=== PATIENT | female | born 1970 | race Caucasian/White ===

== ENCOUNTER 2017-01-14 21:12 | Emergency (ER) | payer OTHER ==
[~2017-01-14 21:12] MED LIST: ALD25 PO; COL100 PO; ELA25 PO; FER300 PO; K10 PO; KLOR-CON M1010 MEQ PO; MAGNESIUM; MAGNESIUM OXID400 MG PO; METP PO; MOT800 PO; MOTRIN800 MG PO; OMEPRAZOLE DR20 M1 PO; POTASSIUM20 MEQ; ULT50 PO; VITAMIN C500 M2 PO; ZOFRAN4 M1 PO; ZOFRAN4 M2 PO
[2017-01-14 23:50] LABS: BASOPHIL % 0.5 % (0-2); PLATELET COUNT 296 x10^3mcL (130-400)
[2017-01-14 23:52] LABS: RED CELL DISTRIBUTION WIDTH 14.9 % (11.5-14.5)
[2017-01-15 00:08] LABS: ALBUMIN 4.1 g/dL (3.4-5.0); ALKALINE PHOSPHATASE 111 U/L (46-116); ALT/SGPT 37 U/L (14-59); AST/SGOT 29 U/L (15-37); BILIRUBIN TOTAL 0.36 mg/dL (0.20-1.00); CALCIUM 9.3 mg/dL (8.5-10.1); CARBON DIOXIDE 35.5 mmol/L (21-32); CHLORIDE SERUM 100 mmol/L (98-107); CREATININE SERUM 0.8 mg/dL (0.6-1.0); GFR1 > 60 mL/min; GLUCOSE SERUM 104 mg/dL (74-106); LIPASE 171 IU/L (73-393); SODIUM SERUM 140 mmol/L (136-145)
[2017-01-15 00:10] LABS: AMYLASE 142 U/L (25-115); TOTAL PROTEIN, SERUM 8.5 g/dL (6.4-8.2)
[2017-01-15 00:12] LABS: POTASSIUM SERUM 2.8 mmol/L (3.5-5.1)
[2017-01-15 04:27] VITALS: BP 107/76
== END 2017-01-15 04:27 | disposition home or self-care (01) ==
LOC: ED 21:12
PROVIDERS: Emergency Medicine
DX: E87.6 Hypokalemia (principal); Z88.5 Allergy status to narcotic agent; Z88.1 Allergy status to other antibiotic agents
CPT/HCPCS: J1885; J2405; J2550; J3010; J3480; J7030

== ENCOUNTER 2017-01-20 20:01 | Emergency (ER) | payer OTHER ==
[2017-01-20 22:20] LABS: BASOPHIL % 0.4 % (0-2); PLATELET COUNT 262 x10^3mcL (130-400)
[2017-01-20 22:33] LABS: CALCIUM 9.4 mg/dL (8.5-10.1); CARBON DIOXIDE 34.3 mmol/L (21-32); CHLORIDE SERUM 100 mmol/L (98-107); CREATININE SERUM 0.9 mg/dL (0.6-1.0); GFR1 > 60 mL/min; GLUCOSE SERUM 105 mg/dL (74-106); POTASSIUM SERUM 3.2 mmol/L (3.5-5.1); SODIUM SERUM 141 mmol/L (136-145)
[2017-01-20 22:37] LABS: ALKALINE PHOSPHATASE 104 U/L (46-116); ALT/SGPT 36 U/L (14-59); AST/SGOT 30 U/L (15-37); BILIRUBIN TOTAL 0.4 mg/dL (0.20-1.00); LIPASE 113 IU/L (73-393); MAGNESIUM 1.9 mg/dL (1.8-2.4); TOTAL PROTEIN, SERUM 7.9 g/dL (6.4-8.2)
[2017-01-21 01:39] VITALS: BP 102/70
== END 2017-01-21 01:39 | disposition home or self-care (01) ==
LOC: ED 20:01
PROVIDERS: Emergency Medicine
DX: R11.2 Nausea with vomiting, unspecified (principal); R19.7 Diarrhea, unspecified; R10.9 Unspecified abdominal pain; E87.6 Hypokalemia; Z90.49 Acquired absence of other specified parts of digestive tract; Z88.1 Allergy status to other antibiotic agents; Z88.5 Allergy status to narcotic agent; Z88.8 Allergy status to other drugs, medicaments and biological substances
CPT/HCPCS: C9113; J1200; J2405; J7030

== ENCOUNTER 2017-04-29 06:55 | Emergency (ER) | payer OTHER ==
[2017-04-29 08:00] LABS: CALCIUM 9.2 mg/dL (8.5-10.1); CARBON DIOXIDE 25.7 mmol/L (21-32); CHLORIDE SERUM 107 mmol/L (98-107); CREATININE SERUM 0.8 mg/dL (0.6-1.0); GFR1 > 60 mL/min; GLUCOSE SERUM 98 mg/dL (74-106); POTASSIUM SERUM 3.3 mmol/L (3.5-5.1); SODIUM SERUM 144 mmol/L (136-145)
[2017-04-29 08:37] VITALS: BP 132/77
== END 2017-04-29 09:13 | disposition home or self-care (01) ==
LOC: ED 06:55
PROVIDERS: Emergency Medicine
DX: R07.89 Other chest pain (principal); T63.441A Toxic effect of venom of bees, accidental (unintentional), initial encounter; L53.0 Toxic erythema; Y92.89 Other specified places as the place of occurrence of the external cause; Z88.5 Allergy status to narcotic agent; Z88.1 Allergy status to other antibiotic agents; Z88.8 Allergy status to other drugs, medicaments and biological substances
CPT/HCPCS: J1200; J2930

== ENCOUNTER 2017-10-01 16:43 | Inpatient (IN) | payer OTHER ==
[~2017-10-01] VITALS: Ht 160 cm; Wt 65.8 kg
[2017-10-01 18:39] LABS: BASOPHIL % 0.6 % (0-2); PLATELET COUNT 258 x10^3mcL (130-400); RED CELL DISTRIBUTION WIDTH 12.7 % (11.5-14.5)
[2017-10-01 18:52] LABS: CALCIUM 9.5 mg/dL (8.5-10.1); CARBON DIOXIDE 25.2 mmol/L (21-32); CHLORIDE SERUM 104 mmol/L (98-107); CREATININE SERUM 0.7 mg/dL (0.6-1.0); GFR1 > 60 mL/min; GLUCOSE SERUM 92 mg/dL (74-106); POTASSIUM SERUM 3.4 mmol/L (3.5-5.1); SODIUM SERUM 138 mmol/L (136-145)
[2017-10-01 19:01] LABS: FREE T4 0.89 ng/dL (0.76-1.46); FREE THYROXINE INDEX 2.8 ug/dL (1.4-4.5); T4(THYROXINE) 8.1 ug/dL (4.7-13.3)
[2017-10-01 19:04] LABS: microscopic required? YES; urine erythrocyte TRACE (NEGATIVE)
[2017-10-01 19:06] LABS: ALBUMIN 4.1 g/dL (3.4-5.0); ALKALINE PHOSPHATASE 102 U/L (46-116); ALT/SGPT 42 U/L (14-59); AST/SGOT 26 U/L (15-37); BILIRUBIN TOTAL 0.4 mg/dL (0.20-1.00); LIPASE 119 IU/L (73-393)
[2017-10-01 19:07] LABS: TOTAL PROTEIN, SERUM 8.4 g/dL (6.4-8.2)
[2017-10-01 19:09] LABS: T3 TOTAL 1.15 ng/mL
[2017-10-01 19:21] LABS: CK-MB 0.5 ng/mL (0-3.6)
[2017-10-01 19:34] LABS: ERYTHROCYTE SED RATE 9 mm/hr (0-20)
[2017-10-01 19:47] LABS: C REACTIVE PROTEIN < 0.2 mg/dL (<=0.9)
[2017-10-01 21:50] VITALS: BP 152/102
[2017-10-01 22:08] LABS: PHOSPHOROUS 2.8 mg/dL (2.5-4.9)
[2017-10-01 22:16] LABS: CHOLESTEROL/HDL RATIO 2.3
[2017-10-02 06:00] VITALS: BP 100/56
[2017-10-02 06:48] LABS: BASOPHIL % 0.6 % (0-2); PLATELET COUNT 216 x10^3mcL (130-400); RED CELL DISTRIBUTION WIDTH 13.1 % (11.5-14.5)
[2017-10-02 06:53] LABS: CALCIUM 8.1 mg/dL (8.5-10.1); CARBON DIOXIDE 24.1 mmol/L (21-32); CHLORIDE SERUM 110 mmol/L (98-107); CREATININE SERUM 0.6 mg/dL (0.6-1.0); GFR1 > 60 mL/min; GLUCOSE SERUM 94 mg/dL (74-106); MAGNESIUM 1.7 mg/dL (1.8-2.4); PHOSPHOROUS 3.2 mg/dL (2.5-4.9); SODIUM SERUM 141 mmol/L (136-145)
[2017-10-02 10:20] VITALS: BP 115/70
[2017-10-02 13:30] VITALS: BP 111/76
[2017-10-02 18:16] VITALS: BP 107/69
[2017-10-02 22:21] VITALS: BP 114/80
[2017-10-03 05:39] VITALS: BP 102/60
[2017-10-03] MEDS ORDERED: TYL325 PO (07:33)
[2017-10-03 08:15] VITALS: BP 120/79
[2017-10-03 09:36] LABS: CALCIUM 8.8 mg/dL (8.5-10.1); CARBON DIOXIDE 27.8 mmol/L (21-32); CHLORIDE SERUM 108 mmol/L (98-107); CREATININE SERUM 0.7 mg/dL (0.6-1.0); GFR1 > 60 mL/min; GLUCOSE SERUM 85 mg/dL (74-106); POTASSIUM SERUM 3.7 mmol/L (3.5-5.1); SODIUM SERUM 142 mmol/L (136-145)
[2017-10-03 12:05] VITALS: BP 123/73
[2017-10-03 12:51] VITALS: BP 120/79
[2017-10-03] MEDS ORDERED: ELA25 PO (14:51)
== END 2017-10-03 14:46 | disposition home or self-care (01) | DRG 241 ==
LOC: ED 16:43 → DU 20:54
PROVIDERS: Internal Medicine Gastroenterology; Specialist; ADMIT Family Medicine
PROC: 0DB78ZX Excision of Stomach, Pylorus, Via Natural or Artificial Opening Endoscopic, Diagnostic (ICD-10-PCS; principal; 2017-10-02 11:30)
DX: K29.70 Gastritis, unspecified, without bleeding (principal); N17.0 Acute kidney failure with tubular necrosis; R31.9 Hematuria, unspecified; Z87.891 Personal history of nicotine dependence; E87.6 Hypokalemia; Z88.5 Allergy status to narcotic agent; Z88.6 Allergy status to analgesic agent; Z90.49 Acquired absence of other specified parts of digestive tract; Z82.49 Family history of ischemic heart disease and other diseases of the circulatory system
CPT/HCPCS: 36600; 43235; 83880; 84439; 87046; 87046-59; J1170; J1200; J1610; J2250; J2310; J2405; J2550; J3010; J3480; J3490; J7030; Q0092; Q0162

== ENCOUNTER 2017-10-29 09:52 | Emergency (ER) | payer OTHER ==
[~2017-10-29] VITALS: Ht 160 cm; Wt 61.7 kg
[~2017-10-29 09:52] MED LIST changes: +TYL325 PO
[2017-10-29 10:17] VITALS: Ht 160 cm; Wt 61.7 kg
[2017-10-29 15:27] VITALS: BP 125/79
== END 2017-10-29 15:27 | disposition home or self-care (01) ==
LOC: ED 09:52
DX: L50.9 Urticaria, unspecified (principal); Z88.5 Allergy status to narcotic agent; Z88.8 Allergy status to other drugs, medicaments and biological substances; Z88.1 Allergy status to other antibiotic agents
CPT/HCPCS: J1200

== ENCOUNTER 2017-11-19 10:40 | Emergency (ER) | payer OTHER ==
[~2017-11-19] VITALS: Ht 160 cm; Wt 61.7 kg
[2017-11-19 10:54] VITALS: Ht 160 cm; Wt 61.7 kg
[2017-11-19 11:31] LABS: CALCIUM 9.3 mg/dL (8.5-10.1); CARBON DIOXIDE 30.5 mmol/L (21-32); CHLORIDE SERUM 103 mmol/L (98-107); CREATININE SERUM 0.9 mg/dL (0.6-1.0); GFR1 > 60 mL/min; GLUCOSE SERUM 99 mg/dL (74-106); POTASSIUM SERUM 3.5 mmol/L (3.5-5.1); SODIUM SERUM 142 mmol/L (136-145)
[2017-11-19 11:37] LABS: ALBUMIN 4.4 g/dL (3.4-5.0); ALKALINE PHOSPHATASE 111 U/L (46-116); ALT/SGPT 47 U/L (14-59); AST/SGOT 31 U/L (15-37); BILIRUBIN TOTAL 0.5 mg/dL (0.20-1.00); LIPASE 139 IU/L (73-393)
[2017-11-19 11:39] LABS: TOTAL PROTEIN, SERUM 8.9 g/dL (6.4-8.2)
[2017-11-19 11:56] LABS: BASOPHIL % 0.8 % (0-2); PLATELET COUNT 267 x10^3mcL (130-400); RED CELL DISTRIBUTION WIDTH 12.9 % (11.5-14.5)
[2017-11-19 12:19] VITALS: BP 125/88
== END 2017-11-19 12:19 | disposition home or self-care (01) ==
LOC: ED 10:40
PROVIDERS: Emergency Medicine
DX: N39.0 Urinary tract infection, site not specified (principal); G83.9 Paralytic syndrome, unspecified; Z90.49 Acquired absence of other specified parts of digestive tract; Z88.5 Allergy status to narcotic agent; Z88.1 Allergy status to other antibiotic agents; Z88.8 Allergy status to other drugs, medicaments and biological substances; Z87.19 Personal history of other diseases of the digestive system; Z87.442 Personal history of urinary calculi
CPT/HCPCS: 36415; J1885; Q0162

== ENCOUNTER 2017-12-11 08:49 | Emergency (ER) | payer OTHER ==
[~2017-12-11] VITALS: Ht 160 cm; Wt 59.9 kg
[2017-12-11 09:35] LABS: BASOPHIL % 0.2 % (0-2); PLATELET COUNT 194 x10^3mcL (130-400); RED CELL DISTRIBUTION WIDTH 12.8 % (11.5-14.5)
[2017-12-11 09:46] LABS: CALCIUM 8.8 mg/dL (8.5-10.1); CARBON DIOXIDE 24.5 mmol/L (21-32); CHLORIDE SERUM 100 mmol/L (98-107); CREATININE SERUM 0.9 mg/dL (0.6-1.0); GFR1 > 60 mL/min; GLUCOSE SERUM 104 mg/dL (74-106); SODIUM SERUM 139 mmol/L (136-145)
[2017-12-11 09:50] LABS: ALBUMIN 3.8 g/dL (3.4-5.0); ALKALINE PHOSPHATASE 97 U/L (46-116); ALT/SGPT 73 U/L (14-59); AMYLASE 81 U/L (25-115); AST/SGOT 51 U/L (15-37); BILIRUBIN TOTAL 0.4 mg/dL (0.20-1.00); LIPASE 141 IU/L (73-393); TOTAL PROTEIN, SERUM 8.3 g/dL (6.4-8.2)
[2017-12-11 13:04] VITALS: BP 102/72
== END 2017-12-11 13:04 | disposition home or self-care (01) ==
LOC: ED 08:49
DX: J11.1 Influenza due to unidentified influenza virus with other respiratory manifestations (principal)
CPT/HCPCS: 83880; 87804; J1170; J1885; J2405; J7030

== ENCOUNTER 2017-12-20 08:45 | Emergency (ER) | payer OTHER ==
[~2017-12-20] VITALS: Ht 160 cm; Wt 58.5 kg
[2017-12-20 08:57] VITALS: Ht 160 cm; Wt 58.5 kg
[2017-12-20 10:18] LABS: BASOPHIL % 0.3 % (0-2); PLATELET COUNT 275 x10^3mcL (130-400); RED CELL DISTRIBUTION WIDTH 12.3 % (11.5-14.5)
[2017-12-20 10:23] LABS: CALCIUM 9.8 mg/dL (8.5-10.1); CARBON DIOXIDE 30.2 mmol/L (21-32); CHLORIDE SERUM 99 mmol/L (98-107); CREATININE SERUM 0.8 mg/dL (0.6-1.0); GFR1 > 60 mL/min; GLUCOSE SERUM 103 mg/dL (74-106); POTASSIUM SERUM 3.5 mmol/L (3.5-5.1); SODIUM SERUM 141 mmol/L (136-145)
[2017-12-20 10:27] LABS: ALBUMIN 4.3 g/dL (3.4-5.0); ALKALINE PHOSPHATASE 112 U/L (46-116); ALT/SGPT 460 U/L (14-59); AST/SGOT 141 U/L (15-37); BILIRUBIN TOTAL 0.67 mg/dL (0.20-1.00); LIPASE 157 IU/L (73-393)
[2017-12-20 10:28] LABS: TOTAL PROTEIN, SERUM 8.7 g/dL (6.4-8.2)
[2017-12-20 11:55] VITALS: BP 116/76
== END 2017-12-20 12:30 | disposition home or self-care (01) ==
LOC: ED 08:45
PROVIDERS: Emergency Medicine
DX: G89.29 Other chronic pain (principal); E86.0 Dehydration; Z90.49 Acquired absence of other specified parts of digestive tract; Z88.1 Allergy status to other antibiotic agents; Z88.5 Allergy status to narcotic agent; Z88.8 Allergy status to other drugs, medicaments and biological substances
CPT/HCPCS: J1885; J2405; J2550; J3010; J7030

== ENCOUNTER 2018-07-09 18:53 | Emergency (ER) | payer OTHER ==
[2018-07-09 21:03] LABS: BASOPHIL % 0.9 % (0-2); PLATELET COUNT 228 x10^3mcL (130-400); RED CELL DISTRIBUTION WIDTH 12.8 % (11.5-14.5)
[2018-07-09 21:20] LABS: CALCIUM 9.1 mg/dL (8.5-10.1); CARBON DIOXIDE 35.1 mmol/L (21-32); CHLORIDE SERUM 103 mmol/L (98-107); GFR1 > 60 mL/min; GLUCOSE SERUM 98 mg/dL (74-106); POTASSIUM SERUM 3.5 mmol/L (3.5-5.1); SODIUM SERUM 142 mmol/L (136-145)
[2018-07-09 21:25] LABS: ALBUMIN 3.7 g/dL (3.4-5.0); ALKALINE PHOSPHATASE 109 U/L (46-116); ALT/SGPT 44 U/L (14-59); AST/SGOT 33 U/L (15-37); BILIRUBIN TOTAL 0.3 mg/dL (0.20-1.00); LIPASE 170 IU/L (73-393)
[2018-07-10 01:34] VITALS: BP 121/76
== END 2018-07-10 01:30 | disposition home or self-care (01) ==
LOC: ED 18:53
PROVIDERS: Emergency Medicine
DX: K52.9 Noninfective gastroenteritis and colitis, unspecified (principal); E86.0 Dehydration; Z90.49 Acquired absence of other specified parts of digestive tract; Z87.442 Personal history of urinary calculi; Z90.89 Acquired absence of other organs; Z88.1 Allergy status to other antibiotic agents; Z88.5 Allergy status to narcotic agent
CPT/HCPCS: J1170; J1885; J2405; J7030

== ENCOUNTER 2018-12-05 11:32 | Emergency (ER) | payer OTHER ==
[~2018-12-05] VITALS: Ht 160 cm; Wt 61.2 kg
[2018-12-05 12:10] LABS: BASOPHIL % 0.7 % (0-2); PLATELET COUNT 226 x10^3mcL (130-400); RED CELL DISTRIBUTION WIDTH 13.3 % (11.5-14.5)
[2018-12-05 13:01] LABS: ALBUMIN 3.8 g/dL (3.4-5.0); ALKALINE PHOSPHATASE 122 U/L (46-116); ALT/SGPT 69 U/L (14-59); AST/SGOT 40 U/L (15-37); BILIRUBIN TOTAL 0.44 mg/dL (0.20-1.00); CALCIUM 9.4 mg/dL (8.5-10.1); CARBON DIOXIDE 28.4 mmol/L (21-32); CHLORIDE SERUM 106 mmol/L (98-107); CREATININE SERUM 0.8 mg/dL (0.6-1.0); GFR1 > 60 mL/min; GLUCOSE SERUM 101 mg/dL (74-106); LIPASE 161 IU/L (73-393); POTASSIUM SERUM 3.7 mmol/L (3.5-5.1); SODIUM SERUM 140 mmol/L (136-145); TOTAL PROTEIN, SERUM 8.2 g/dL (6.4-8.2)
[2018-12-05 13:47] VITALS: BP 127/79
== END 2018-12-05 14:31 | disposition home or self-care (01) ==
LOC: ED 11:32
PROVIDERS: Emergency Medicine
DX: K21.9 Gastro-esophageal reflux disease without esophagitis (principal); M54.6 Pain in thoracic spine; Z90.49 Acquired absence of other specified parts of digestive tract; Z90.89 Acquired absence of other organs; Z87.442 Personal history of urinary calculi; Z98.890 Other specified postprocedural states; Z88.1 Allergy status to other antibiotic agents; Z88.6 Allergy status to analgesic agent
CPT/HCPCS: J1885; J2405; J3010; J7030; Q0092

== ENCOUNTER 2019-05-30 00:11 | Emergency (ER) | payer OTHER ==
[~2019-05-30] VITALS: Ht 160 cm; Wt 61.0 kg
[2019-05-30 00:29] VITALS: Ht 160 cm; Wt 61.0 kg
[2019-05-30 03:02] LABS: CALCIUM 9.4 mg/dL (8.5-10.1); CHLORIDE SERUM 105 mmol/L (98-107); CREATININE SERUM 0.8 mg/dL (0.6-1.0); GFR1 > 60 mL/min; GLUCOSE SERUM 96 mg/dL (74-106); POTASSIUM SERUM 3.4 mmol/L (3.5-5.1); SODIUM SERUM 144 mmol/L (136-145)
[2019-05-30 03:07] LABS: ALKALINE PHOSPHATASE 111 U/L (46-116); ALT/SGPT 39 U/L (14-59); AST/SGOT 20 U/L (15-37); BILIRUBIN TOTAL 0.38 mg/dL (0.20-1.00); CHOLESTEROL 185 mg/dL (<200); LIPASE 118 IU/L (73-393); TRIGLYCERIDES 122 mg/dL (<150)
[2019-05-30 03:08] LABS: BASOPHIL % 0.9 % (0-2); CHOLESTEROL/HDL RATIO 2.9; HDL CHOLESTEROL 64 mg/dL (40-60); PLATELET COUNT 253 x10^3mcL (130-400); RED CELL DISTRIBUTION WIDTH 12.9 % (11.5-14.5)
[2019-05-30 03:14] LABS: FREE T4 1.04 ng/dL (0.76-1.46); FREE THYROXINE INDEX 2.7 ug/dL (1.4-4.5)
[2019-05-30 03:21] LABS: T3 TOTAL 1.52 ng/mL
[2019-05-30 04:59] LABS: microscopic required? YES; urine erythrocyte NEGATIVE (NEGATIVE)
[2019-05-30 05:54] VITALS: BP 126/61
== END 2019-05-30 05:54 | disposition home or self-care (01) ==
LOC: ED 00:11
PROVIDERS: Specialist
DX: E87.6 Hypokalemia (principal); R07.89 Other chest pain; M79.10 Myalgia, unspecified site; Z90.49 Acquired absence of other specified parts of digestive tract; Z90.89 Acquired absence of other organs; Z87.442 Personal history of urinary calculi; Z88.1 Allergy status to other antibiotic agents; Z88.5 Allergy status to narcotic agent; Z88.8 Allergy status to other drugs, medicaments and biological substances
CPT/HCPCS: 83880; 84439; J2405; J7030; Q0163

== ENCOUNTER 2020-04-19 10:10 | Emergency (ER) | payer OTHER ==
[~2020-04-19] VITALS: Ht 160 cm; Wt 63.0 kg
[2020-04-19 10:18] VITALS: Ht 160 cm; Wt 63.0 kg
[2020-04-19 11:36] LABS: BASOPHIL % 0.5 % (0-2); PLATELET COUNT 186 x10^3mcL (130-400); RED CELL DISTRIBUTION WIDTH 12.9 % (11.5-14.5)
[2020-04-19 11:46] LABS: CALCIUM 8.4 mg/dL (8.5-10.1); CARBON DIOXIDE 29.2 mmol/L (21-32); CHLORIDE SERUM 106 mmol/L (98-107); CREATININE SERUM 0.7 mg/dL (0.6-1.0); GFR1 > 60 mL/min; GLUCOSE SERUM 94 mg/dL (74-106); POTASSIUM SERUM 3.1 mmol/L (3.5-5.1); SODIUM SERUM 142 mmol/L (136-145)
[2020-04-19 11:51] LABS: ALBUMIN 3.6 g/dL (3.4-5.0); ALKALINE PHOSPHATASE 104 U/L (46-116); ALT/SGPT 63 U/L (14-59); AST/SGOT 32 U/L (15-37); BILIRUBIN TOTAL 0.29 mg/dL (0.20-1.00); TOTAL PROTEIN, SERUM 7.2 g/dL (6.4-8.2)
[2020-04-19 12:12] LABS: FREE T4 0.81 ng/dL (0.76-1.46); T4(THYROXINE) 6.2 ug/dL (4.7-13.3)
[2020-04-19 12:34] LABS: T3 TOTAL 0.89 ng/mL
[2020-04-19 12:35] LABS: microscopic required? YES; urine erythrocyte NEGATIVE (NEGATIVE)
[2020-04-19 16:58] VITALS: BP 115/74
== END 2020-04-19 16:58 | disposition short-term general hospital (02) ==
LOC: ED 10:10
PROVIDERS: Emergency Medicine
DX: G93.6 Cerebral edema (principal); G93.9 Disorder of brain, unspecified; E87.6 Hypokalemia; N39.0 Urinary tract infection, site not specified; Z88.1 Allergy status to other antibiotic agents; Z88.5 Allergy status to narcotic agent; Z88.8 Allergy status to other drugs, medicaments and biological substances; Z90.49 Acquired absence of other specified parts of digestive tract; Z90.89 Acquired absence of other organs; Z87.442 Personal history of urinary calculi
CPT/HCPCS: 84439; J1100; J2270; J2405; J3010; J7030

== ENCOUNTER 2020-04-28 10:42 | Inpatient (IN) | payer OTHER, SELFPAY ==
[~2020-04-28] VITALS: Ht 160 cm; Wt 59.0 kg
--- NOTE | 2020-04-28 11:54 | NUR ---
PT AMBULATED TO ROOM T1 WITH MASK, PT EDUCATED TO REMOVE CLOTHING FOR COOLING MEASURES AND TO PLACE GOWN ON. PT AWAITING MD ESQUIVEL. PRIMARY RN AWARE OF PT. PT EDUCATED TO KEEP BLANKETS OFF DUE TO HAVING 102.8 TEMPERATURE.
[2020-04-28 12:18] VITALS: Ht 160 cm; Wt 59.0 kg
--- NOTE | 2020-04-28 12:27 | NUR ---
49 YEAR OLD FEMALE PRESENTS WITH DRY COUGH, SHORTNESS OF BREATH, CHEST PAIN, BODY ACHES AND LOSS OF TASTE X 1 WEEK. PT REPORTS SHE WAS HOSPITALIZED FOR 4 DAYS FOR A BENIGN BRAIN TUMOR. PT IS AWAKE, ALERT, ANSWERING QUESTIONS APPROPRIATELY. PT APPEARS [id number] WITH INTERMITTENT MOANING. DENIES ANY RECENT SICK CONTACTS
[2020-04-28 12:39] LABS: CALCIUM 8.3 mg/dL (8.5-10.1); CARBON DIOXIDE 26.6 mmol/L (21-32); CHLORIDE SERUM 101 mmol/L (98-107); CREATININE SERUM 0.9 mg/dL (0.6-1.0); GFR1 > 60 mL/min; GLUCOSE SERUM 96 mg/dL (74-106); POTASSIUM SERUM 3.8 mmol/L (3.5-5.1); SODIUM SERUM 138 mmol/L (136-145)
[2020-04-28 12:42] LABS: ALKALINE PHOSPHATASE 110 U/L (46-116); ALT/SGPT 69 U/L (14-59); AST/SGOT 37 U/L (15-37); BILIRUBIN TOTAL 0.44 mg/dL (0.20-1.00); C REACTIVE PROTEIN 5.5 mg/dL (<=0.9); LACTIC DEHYDROGENASE (LDH) 342 U/L (100-190)
[2020-04-28 12:43] LABS: BASOPHIL % 0.2 % (0-2); PLATELET COUNT 166 x10^3mcL (130-400); RED CELL DISTRIBUTION WIDTH 12.8 % (11.5-14.5)
[2020-04-28 12:53] LABS: ALBUMIN 3.1 g/dL (3.4-5.0)
[2020-04-28 14:44] LABS: T3 TOTAL 0.74 ng/mL
[2020-04-28 15:12] LABS: MAGNESIUM 1.9 mg/dL (1.8-2.4); PHOSPHOROUS 2.9 mg/dL (2.5-4.9)
--- NOTE | 2020-04-28 15:13 | NUR ---
PT COMFORTABLY LAYING IN GURNEY. PT IS AWAKE, ALERT, RESP E/U.
--- NOTE | 2020-04-28 15:20 | NUR ---
GAVE REPORT TO JOEL
[2020-04-28 15:21] LABS: CHOLESTEROL/HDL RATIO 2.4
--- NOTE | 2020-04-28 15:32 | NUR ---
RECEIVED PATIENT FROM ED VIA [facility] ACCOMPANIED BY NURSE. PATIENT ABLE TO AMBULATE FROM [facility] TO BED. TOLERATED WELL. PATIENT AAOX4. DENIES DIZZINESS, TOLERABLE HEADACHE 3/10 PAIN. PERRL. NO ACUTE RESP DISTRESS NOTED. REMAINS ON 2L NC WITH O2 SATURATION AT 97%. NO SOB NOTED. DRY COUGHING NOTED. DENIES CHEST PAIN OR PRESSURE. ON TELE #10, NSR. PER PATIENT LAST BM WAS TWO WEEKS AGO. HYPOACTIVE BOWEL SOUNDS NOTED. DENIES DYSURIA. RADIAL AND PEDAL PULSES PRESENT AND PALPABLE. CAP REFILL <3SECS. IV SITE RFA 22G, INTACT AND PATENT. NO ERYTHEMA/SWELLING NOTED. SAFETY PREC IN PLACE. CALL LIGHT WITHIN REACH. WILL CONTINUE TO MONITOR.
[2020-04-28 15:59] LABS: FREE T4 0.8 ng/dL (0.76-1.46); FREE THYROXINE INDEX 1.9 ug/dL (1.4-4.5); T4(THYROXINE) 6.1 ug/dL (4.7-13.3)
--- NOTE | 2020-04-28 16:41 | NUR ---
TERA-TORRES MADE AWARE THAT PATIENT IS ALLERGIC TO ROCEPHIN AND MEDICATION WAS DC'D BY PHARMACY. ATTENDING NURSE JOEL AWARE.
--- NOTE | 2020-04-28 17:45 | NUR ---
PATIENT MADE AWARE OF URINE SAMPLE NEEDED. URINE CUP PROVIDED. ABLE TO GIVE URINE SAMPLE. MRSA SWAB DONE. BOTH SENT TO LAB.
[2020-04-28 18:15] LABS: microscopic required? NO
[2020-04-28 18:29] LABS: urine erythrocyte NEGATIVE (NEGATIVE)
--- NOTE | 2020-04-28 18:30 | NUR ---
COVID SWAB COMPLETED. PATIENT TOLERATED WELL. WILL CONTINUE TO MONITOR.
[2020-04-28 19:17] VITALS: BP 94/61
--- NOTE | 2020-04-28 19:30 | NUR ---
PATIENT STABLE. ALL NEEDS MET. ENDORSED CARE TO CARDIOLOGY MANAGER NURSE.
[2020-04-28 20:35] VITALS: BP 107/64
--- NOTE | 2020-04-28 21:26 | NUR ---
PT MEDICATED W/ TYLENOL 650 MG PO FOR C/O ABDL PAIN 04/29.
--- NOTE | 2020-04-28 21:56 | NUR ---
DULCOLAX SUPPOSITORY ADMINISTERED ORDERED.
--- NOTE | 2020-04-29 03:16 | NUR ---
PT STATED SHE HAD BOWEL MOVEMENTS X3 AFTER DULCOLAX SUPP WAS GIVEN.
--- NOTE | 2020-04-29 05:12 | NUR ---
PT SLEPT IN LONG INTERVALS. SHE WAS MEDICATED FOR C/O ABDL PAIN X1 W/ RELIEF. SHE HAD NO C/O SOB AND REMAINS ON ROOM AIR. PT NOTED W/ OCCASIONAL DRY COUGH. SHE HAD BM X3 THIS SHIFT .ALL NEEDS ATTENDED TO .
[2020-04-29 05:20] VITALS: BP 108/61
[2020-04-29 07:24] LABS: BASOPHIL % 0.1 % (0-2); PLATELET COUNT 168 x10^3mcL (130-400); RED CELL DISTRIBUTION WIDTH 13.4 % (11.5-14.5)
[2020-04-29 07:47] LABS: C REACTIVE PROTEIN 8.7 mg/dL (<=0.9); CALCIUM 8.1 mg/dL (8.5-10.1); CARBON DIOXIDE 24.6 mmol/L (21-32); CHLORIDE SERUM 108 mmol/L (98-107); CREATININE SERUM 0.6 mg/dL (0.6-1.0); GFR1 > 60 mL/min; GLUCOSE SERUM 129 mg/dL (74-106); POTASSIUM SERUM 3.9 mmol/L (3.5-5.1); SODIUM SERUM 141 mmol/L (136-145)
--- NOTE | 2020-04-29 07:47 | NUR ---
Nutrition Note Nursing Trigger received "Nausea, vomiting, diarrhea for > 3 days" Pt admitted with acute respiratory failure and sepsis, mild malnutrition, h/o meningioma, DVT per H&P documentations on 04/28. Pt also denied N/V/D as noted in H and P. Pt does not meet high risk criteria per nutrition care policy and standards. Pt will be assessed as moderate risk and initial assessment due 05/02-
[2020-04-29 09:41] VITALS: BP 129/81
--- NOTE | 2020-04-29 10:05 | NUR ---
alert, oriented, and very appropriate, " had 3 bm, since laxative given last nite, happy. did not want stool softener. " has been taking multiple meds because of mengioma, therefore, i have been constipated, education given on how to avoid the probble. verbalized understanding
--- NOTE | 2020-04-29 11:40 | NUR ---
FRUSTRATED BECAUSE " NOBODY TELLS ME ANYTHING, THEY DID SWAB MY NOSE SINCE LAST NITE, WHERE IS THE RESULT AUTHOR TOOK THE LIBERTY TO TELL HER WHAT APPEARED ON PROGRESS NOTE, , ADMITTED WITH [facility], NOW ZITHROMAX IVPB GIVEN CLAIMED CHEST DISCOMFORT, NON-PRODUCTIVE COUGH, WILL NOTIFY THE TEAM. FOR NOW 2LITER NC OXYGEN APPLIED.
[2020-04-29 13:22] VITALS: BP 125/77
[2020-04-29 17:15] VITALS: BP 109/65
--- NOTE | 2020-04-29 19:05 | NUR ---
RECEIVED PT FROM DAY SHIFT NURSE. Kris/PERICO. TELE #10 READING NSR. PT ON 5L NC SATING 97%. PT C/O SHORTNESS OF BREATH UPON EXERTION AND DRY COUGH. IV TO RFA, PATENT AND INTACT. NO C/O PAIN OR DISCOMFORT. PT REQUESTING TO SPEAK WITH WILL NOTIFIY REGARDING PTS CONCERNS. CALL LIGHT WITHIN REACH. BED IN LOWEST POSITION. WILL CONTINUE TO MONITOR.
[2020-04-29 21:24] VITALS: BP 118/72
--- NOTE | 2020-04-30 01:10 | NUR ---
PT SLEEPING AT THIS TIME. RR EVEN AND UNLABORED ON 2L NC. NO SIGNS OF ACUTE DISTRESS NOTED. CALL LIGHT WITHIN REACH. WILL CONTINUE TO MONITOR.
[2020-04-30 04:41] VITALS: BP 134/83
--- NOTE | 2020-04-30 06:31 | NUR ---
PT SLEEPING AT THIS TIME. RR EVEN AND UNLABORED ON 2L NC. NO SIGNS OF ACUTE DISTRESS NOTED. NO COMPLAINTS AT THIS TIME. CALL LIGHT WITHIN REACH. WILL ENDORSE CARE TO ONCOMING SHIFT NURSE
--- NOTE | 2020-04-30 06:33 | NUR ---
PTS TEMPERATURE AT 0500 WAS 101.1. ADMINISTERED TYLENOL 650MG PER MAR. PTS NEW TEMPERATURE IS 101.9. COOLING MEASURE IMPLEMENTED. WILL CONTINUE TO MONITOR.
--- NOTE | 2020-04-30 07:05 | NUR ---
RECEIVED BEDSIDE REPORT FROM NIGHT RN. PT IN NO ACUTE DISTRESS. PT AOX4. PT ON TELE#10. RR EVEN AND UNLABORED ON 2L NC.PT AMBULATORY. ALL NEEDS MEET AT THIS TIME. CALL LIGHT WITHIN REACH. WILL CONTINUE TO MONITOR.
[2020-04-30 08:58] VITALS: BP 124/78
[2020-04-30 09:34] LABS: CARBON DIOXIDE 21.7 mmol/L (21-32); CHLORIDE SERUM 106 mmol/L (98-107); CREATININE SERUM 0.7 mg/dL (0.6-1.0); GFR1 > 60 mL/min; GLUCOSE SERUM 90 mg/dL (74-106); POTASSIUM SERUM 3.6 mmol/L (3.5-5.1); SODIUM SERUM 139 mmol/L (136-145)
--- NOTE | 2020-04-30 10:15 | NUR ---
IV INFILTRATED ON RFA WITH SOME SWELLING. IV DC. NEW IV STARTED ON LFA 22G. CALL LIGHT WITHIN REACH. BED LOCKED IN LOWEST POSITION. WILL CONTINUE TO MONITOR.
[2020-04-30 11:14] LABS: PLATELET COUNT 172 x10^3mcL (130-400); RED CELL DISTRIBUTION WIDTH 12.7 % (11.5-14.5)
--- NOTE | 2020-04-30 11:30 | NUR ---
PT MOVED TO FROM ROOM 221A TO 222A. O2 NOT WORKING IN 222A. PT MOVED TO 225A. PT CO ROOM WAS HOT AND UNCOMFORTABLE. CHARGE NURSE MADE AWARE. ALL OTHER COVID ROOMS FULL. ALL OTHER NEEDS MEET AT THIS TIME. WILL CONTINUE TO MONITOR.
[2020-04-30 11:58] VITALS: BP 129/82
[2020-04-30 14:07] LABS: BAND NEUTROPHIL 13 % (0-10); MONOCYTE 2 % (0-7); SEGMENTED NEUTROPHILS 78 % (37-75)
[2020-04-30 14:11] LABS: PLATELET MORPHOLOGY LARGE PLATELET SEEN; rbc morphology (normal/abnorm) NORMAL (NORMAL)
[2020-04-30 15:50] VITALS: BP 107/73
--- NOTE | 2020-04-30 16:00 | NUR ---
PT MOVED BACK TO 222A. PT HAS ALL BELONGINGS. PT IN NO ACUTE DISTRESS. RR EVEN AND UNLABORED ON RA. NO CO SOB. HOB ELEFVATED. NO CO CHEST PRESSURE OR PAIN. ALL NEEDS MEET AT THIS TIME. CALL LIGHT WITHIN REACH.
--- NOTE | 2020-04-30 18:52 | NUR ---
PT IN BED RESTING. NO ACUTE DISTRESS. RR EVEN AND ON RA. PT DENIES SOB. HOB ELEVATED. NO CO CHEST PAIN OR PRESSURE. AL NEEDS MEET AT THIS TIME. WILL ENDORSE TO NIGHT RN.
[2020-04-30 19:33] VITALS: BP 120/77
--- NOTE | 2020-04-30 19:34 | NUR ---
RECEIVED PT FROM DAY SHIFT NURSE. PT A/OX4. ON TELE#10 READING AT 86. RR EVEN AND UNLABORED ON RA. PT DENIES SOB OR DIFFICULTY BREATHING. DRY COUGH PRESENT. IV TO LFA INFUSING NS AT 100 ML/HR. NO C/O PAIN OR DISCOMFORT. CALL LIGHT WITHIN REACH. BED IN LOWEST POSITION. WILL CONTINUE TO MONITOR.
--- NOTE | 2020-05-01 00:39 | NUR ---
PT RESTING IN BED AT THIS TIME. PT C/O HEADACHE AND SOB UPON EXERTION. ADMINISTERED TYLENOL PER MAR AND PAGED RT. NO S/S OF ACUTE DISTRESS NOTED. PT ON RA SATING 91%. IV TO LFA INFUSING NS AT 100ML/HR. CALL LIGHT WITHIN REACH. BED IN LOWEST POSITION. WILL CONTINUE TO MONITOR.
--- NOTE | 2020-05-01 00:42 | NUR ---
RT SEEN PATIENT. PT C/O SOB UPON GETTING UP TO USE THE RESTROOM. REQUESTING OXYGEN. RR EVEN AND UNLABORED ON RA SATING 91%. RT UNABLE TO SET UP OXYGEN IN 222A. INSTRUCTED PT TO USE CALL LIGHT WHEN NEEDING TO USE THE RESTROOM. WILL USE OXYGEN TANK NEEDED FOR PTS SOB. WILL CONTINUE TO MONITOR.
--- NOTE | 2020-05-01 03:33 | NUR ---
WALL UNIT FOR FLOW METER NOT WORKING, PT STATES SOB AND WANTS O2 POX ON RA IS 91-94%. UNABLE TO PLACE ON NC AT THIS TIME DUE TO WALL UNIT NOT WORKING RN AND CHARGE NURSE MADE AWARE.
[2020-05-01 03:45] VITALS: BP 120/77
[2020-05-01 04:12] VITALS: BP 120/72
--- NOTE | 2020-05-01 06:18 | NUR ---
PT SEEN SITTING AT EDGE OF BED, SOB. PLACED PT ON 2L OXYGEN VIA O2 TANK. PTS OXYGEN AT 93 ON RA. D/C OXYGEN AT THIS TIME. INSTRUCTED PT TO USE CALL LIGHT WHEN FEELING SOB FOR NURSE TO BRING O2 TANK INSIDE ROOM. NO C/O PAIN OR DISCOMFORT. CALL LIGHT WITHIN REACH. WILL ENDORSE CARE TO ONCOMING SHIFT NURSE.
--- NOTE | 2020-05-01 07:05 | NUR ---
RECEIVED BEDSIDE REPORT FROM NIGHT RN. PT IN BED RESTING. NO ACUTE DISTRESS. RR EVEN AND UNLABORED ON RA. PT ON TELE#10. PT ON DROPLET PRECAUTIONS. CALL LIGHT WITHIN REACH. BED LOCKED IN LOWEST POSITION. WILL CONTINUE TO MONITOR.
[2020-05-01 08:26] LABS: PLATELET COUNT 210 x10^3mcL (130-400); RED CELL DISTRIBUTION WIDTH 13.1 % (11.5-14.5)
[2020-05-01 08:56] VITALS: BP 139/86
[2020-05-01 09:00] LABS: C REACTIVE PROTEIN 11.7 mg/dL (<=0.9); CALCIUM 7.9 mg/dL (8.5-10.1); CARBON DIOXIDE 22.8 mmol/L (21-32); CHLORIDE SERUM 109 mmol/L (98-107); CREATININE SERUM 0.6 mg/dL (0.6-1.0); GFR1 > 60 mL/min; GLUCOSE SERUM 91 mg/dL (74-106); POTASSIUM SERUM 3.7 mmol/L (3.5-5.1); SODIUM SERUM 142 mmol/L (136-145)
[2020-05-01 09:02] LABS: BASOPHIL % 0 % (0-2)
--- NOTE | 2020-05-01 09:50 | NUR ---
PT IN BED RESTING. NO ACUTE DISTRESS. RR EVEN AND UNLABORED ON RA. NO CO SOB. NO CO CHEST PRESSURE OR PAIN. CALL LIGHT WITHIN REACH. HOB ELEVATED. PT AMBULATORY. SKIN INTACT. BED LOCKED IN LOWEST POSITION. WILL CONTINUE TO MONITOR.
[2020-05-01] MEDS ORDERED: GUAIFENESI100 MG/5 M PO (11:19)
[2020-05-01] MEDS ORDERED: PRI20 PO (11:19)
[2020-05-01] MEDS ORDERED: MEDROL DOSEPAK4 MG PO (11:21)
[2020-05-01] MEDS ORDERED: ASPIRIN CHILDRE81 MG PO (11:22)
--- NOTE | 2020-05-01 11:30 | NUR ---
PT IN BED RESTING. PT USED CALL LIGHT CO SOB. O2 SAT 88% ON RA. PT STATED HAVING TROUBLE BREATHING AND COUGHING. PT MOVED TO ROOM 221A AND PLACED ON 2L NC. PT TEACHING ON PRONE POSITION IF SOB HAPPENS AGAIN. ALL OTHER NEEDS MEET. CALL LIGHT WITHIN REACH. WILL CONTINUE TO MONITOR.
[2020-05-01 12:06] VITALS: BP 134/77
--- NOTE | 2020-05-01 12:33 | NUR ---
PT O2 SAT 97% ON 2L NC. NO CO SOB
--- NOTE | 2020-05-01 15:35 | NUR ---
PT IN BED RESTING. NO CO SOB. NO CHEST PAIN/ PRESSURE. PT ON 2L NC 02 SAT 96-98%. WILL CONTINUE TO MONITOR.
[2020-05-01 16:24] VITALS: BP 126/79
--- NOTE | 2020-05-01 19:09 | NUR ---
PT IN BED RESTING NO ACUTE DISTRESS. RR EVEN ON 2L NC. ENDORSE CARE TO NIGHT RN.
--- NOTE | 2020-05-01 19:32 | NUR ---
RECEIVED PT FROM DAY SHIFT NURSE. PT A/OX4. TELE#10 READING NSR. LUNG SOUNDS CLEAR ON 2L NC SATING 98%. PT DENIES SOB OR DIFFICULTY BREATHING AT THIS TIME. DRY COUGH PRESENT. IV TO LFA INTACT, INFUSING NS AT 100ML/HR. NO C/O PAIN OR DISCOMFORT. PT ON DROPLET/CONTACT PRECAUTIONS FOR POSITIVE COVID. NO SIGNS OF ACUTE DISTRESS NOTED. CALL LIGHT WITHIN REACH. BED IN LOWEST POSITION. WILL CONTINUE TO MONITOR.
[2020-05-01 21:45] VITALS: BP 137/82
--- NOTE | 2020-05-02 03:51 | NUR ---
PT SLEEPING AT THIS TIME. NO SIGNS OF ACUTE DISTRESS NOTED. PT ON 2L NC, NO SIGNS OF SOB OR DIFFICULTY BREATHING. CALL LIGHT WITHIN REACH. WILL CONTINUE TO MONITOR.
[2020-05-02 05:57] VITALS: BP 141/84
--- NOTE | 2020-05-02 06:08 | NUR ---
PT RESTING IN BED AT THIS TIME. PT CALM AND RESTLESS THROUGHOUT THE NIGHT. PT VERBALIZED THAT SHE WAS UNABLE TO SLEEP THROUGHOUT THE NIGHT. PT DENIES SOB OR DIFFICULTY BREATHING. IV INFUSING NS AT 100ML/HR. NO C/O PAIN AT THIS TIME. CALL LIGHT WITHIN REACH. WILL ENDORSE CARE TO ONCOMING SHIFT NURSE.
[2020-05-02 08:21] LABS: CALCIUM 8.2 mg/dL (8.5-10.1); CARBON DIOXIDE 24.8 mmol/L (21-32); CHLORIDE SERUM 106 mmol/L (98-107); CREATININE SERUM 0.7 mg/dL (0.6-1.0); GFR1 > 60 mL/min; GLUCOSE SERUM 86 mg/dL (74-106); POTASSIUM SERUM 3.5 mmol/L (3.5-5.1); SODIUM SERUM 141 mmol/L (136-145)
[2020-05-02 09:09] VITALS: BP 120/74
[2020-05-02 09:29] LABS: BASOPHIL % 0.2 % (0-2); PLATELET COUNT 258 x10^3mcL (130-400); RED CELL DISTRIBUTION WIDTH 13.6 % (11.5-14.5)
--- NOTE | 2020-05-02 10:54 | NUR ---
AAO TIMES 4. TELE # 10 SR. LUNGS DIMINISHED BILATERALLY. O2 SAT ON 2L NDC 97%. BS'S ACTIVE TIMES 4. TOLBERT, BRP SELF. PERIPHERAL PULSES PALPABLE. NO EDEMA. ON LOVENOX. NO C/O PAIN. COOPERATIVE.
[2020-05-02 12:22] VITALS: BP 112/78
[2020-05-02 16:17] VITALS: BP 126/71; BP 126/79
--- NOTE | 2020-05-02 17:52 | NUR ---
AAO TIMES 4. TELE # 10 SR. NO C/O PAIN. O2 2L NC. THE DISCHARGE WILL BE DELAYED UNTIL TOMORROW, SHE QUALIFIES FOR HOME O2, BUT IT CANT BE DELIVERED UNTIL TOMTERA SAAVEDRA NP IS AWARE. COOPERATIVE.
--- NOTE | 2020-05-02 19:45 | NUR ---
RECEIVED PT AT THIS TIME, PT AWAKE IN BED WATCHING TELEVISION. AA/O X 4, ABLE TO MAKE NEEDS KNOWN, CLEAR SPEECH, NO FACIAL DROOP. DENIES HEADACHE/ DIZZINESS. TELE MONITOR #[address], NSR. DENIES CHEST PAIN/ CHEST PRESSURE. PULSES PALPABLE, NO EDEMA. LUNG SOUNDS CTA, PT ON O2 2 LPM VIA NC. RESPIRATIONS EVEN AND UNLABORED, 02 SAT AT 97%. ABD SOFT AND NON DISTENDED/ NON TENDER. DENIES N/V/D. PT DENIES PAIN AT THIS TIME. IV SITE TO LFA INTACT, NO ERYTHEMA/ NO INFILTRATION. IV FLUIDS INFUSING WELL AT THIS TIME AT 100 ML/ HR. BEDSIDE RAILS UP X 2, BED IN LOWEST POSITION. PT ON DROPLET/ CONTACT ISOLATION FOR POSITIVE COVID-19 (+) STATUS. CALL BUTTON WITHIN REACH, WILL CONTINUE TO MONITOR.
[2020-05-02 21:00] VITALS: BP 114/61
--- NOTE | 2020-05-03 00:15 | NUR ---
PT IN BED RESTING WITH EYES CLOSED, BUT EASILY AROUSABLE. RESPIRATIONS EVEN AND UNLABORED. PT ON 2 LPM OF O2 VIA NC, O2 SAT AT 94%. NO SIGNS/ SYMPTOMS OF PAIN AT THIS TIME. IV FLUIDS INFUSING WELL TO LFA, NO INFILTRATION. NO ACUTE DISTRESS AT THIS TIME. CALL BUTTON WITHIN REACH, WILL CONTINUE TO MONITOR.
[2020-05-03 05:53] VITALS: BP 129/68
--- NOTE | 2020-05-03 06:51 | NUR ---
PT SLEPT IN INTERVALS THROUGHOUT THE NIGHT, BUT EASILY AROUSABLE. IV FLUIDS INFUSING WELL AT 100 ML/HR. DENIES SOB/ DENIES PAIN. CONTINUES ON DROPLET PRECAUTIONS FOR POSITIVE COVID-19 STATUS. O2 AT 2 LPM VIA NC AND O2 SAT AT 100%. NO ACUTE CHANGES OVERNIGHT. CALL BUTTON WITHIN REACH, WILL ENDORSE CARE TO AM NURSE.
--- NOTE | 2020-05-03 08:00 | NUR ---
PATIENT IS A&OX4, FOLLOWS COMMANDS AND COOPERATES WELL. TELE #10, NSR, DENIES CHSET PAIN. PERIPHERAL PULSES PALPABLE W/ NO SIGNS OF EDEMA. LUNG SOUNDS CTA BILATERALLY, ON 2L NC, O2 SAT, 97%, DENIES SOB. NORMOACTIVE BSX4, ABD SOFT AND FLAT, DENIES ABD PAIN. VOIDS USING RESTROOM. AMBULATORY TO RESTROOM. SKIN IS INTACT. STATES GENERALIZED BODY ACHES AND HAS A HEADACHE. WILL ADMINISTER TYLENOL. IV SITE IS CDI AND INFUSING. DENIES ANY OTHER PAIN OR DISCOMFORT. WILL CONTINUE TO MONITOR.
[2020-05-03 08:11] VITALS: BP 128/95
[2020-05-03 09:11] VITALS: BP 123/68
--- NOTE | 2020-05-03 12:58 | NUR ---
WAS NOTIFIED BY CM THAT OXYGEN TANK AND CONCENTRATOR WILL BE DELIVERED TO THE PATIENT'S HOUSE FROM [id number]. PATIENT IS AWARE AND WILL NOTIFY . WILL CONTINUE TO MONITOR PATIENT.
--- NOTE | 2020-05-03 16:00 | NUR ---
PATIENT HAS RECEIVED DISCHARGE INSTRUCTIONS. ALL QUESTIONS AND CONCERNS HAVE BEEN ADDRESSED. PATIENT DENIES BEING ANXIOUS ABOUT GOING HOME. TELE HAS BEEN DC AND RETURNED TO STATION. IV CATHETER IS DC WITH CATHETER INTACT. PATIENT AWAITING FOR TO PICK PATIENT UP. WILL CONTINUE TO MONITOR PATIENT UNTIL THEN.
--- NOTE | 2020-05-03 16:59 | NUR ---
PATIENT HAS BEEN DISCHARGED.
== END 2020-05-03 16:56 | disposition home or self-care (01) | DRG 720 ==
LOC: ED 10:42 → DU 13:55 → MU 04-30 14:42 → DU 04-30 16:30
PROVIDERS: Specialist; ADMIT Family Medicine; ATTEND Family Medicine
DX: A41.89 Other specified sepsis (principal); J96.01 Acute respiratory failure with hypoxia; K85.90 Acute pancreatitis without necrosis or infection, unspecified; J18.9 Pneumonia, unspecified organism; G83.9 Paralytic syndrome, unspecified; K26.9 Duodenal ulcer, unspecified as acute or chronic, without hemorrhage or perforation; E44.1 Mild protein-calorie malnutrition; N20.0 Calculus of kidney; R51 Headache; E87.6 Hypokalemia; Z88.0 Allergy status to penicillin; Z88.5 Allergy status to narcotic agent; Z88.1 Allergy status to other antibiotic agents; Z90.49 Acquired absence of other specified parts of digestive tract; Z79.899 Other long term (current) drug therapy; Z82.49 Family history of ischemic heart disease and other diseases of the circulatory system; Z68.23 Body mass index [BMI] 23.0-23.9, adult
CPT/HCPCS: 36600; 83880; 84439; 85378; 87804; G0378; J0456; J1100; J1650; J1885; J1956; J2405; J7030; J7040; J8540; Q0092; U0003-CS

== ENCOUNTER 2020-11-08 09:02 | Emergency (ER) | payer OTHER ==
[~2020-11-08] VITALS: Ht 160 cm; Wt 64.4 kg
[~2020-11-08 09:02] MED LIST changes: +ASPIRIN CHILDRE81 MG PO; +GUAIFENESI100 MG/5 M PO; +MEDROL DOSEPAK4 MG PO; +PRI20 PO
[2020-11-08 09:08] VITALS: Ht 160 cm; Wt 64.4 kg
[2020-11-08 10:14] LABS: PLATELET COUNT 349 x10^3mcL (179-408); RED CELL DISTRIBUTION WIDTH 13.8 % (12.3-17.7)
[2020-11-08 10:16] LABS: BASOPHIL % 2.7 % (0.2-1.3)
[2020-11-08 10:21] LABS: CALCIUM 8.6 mg/dL (8.5-10.1); CARBON DIOXIDE 25.8 mmol/L (21-32); CHLORIDE SERUM 102 mmol/L (98-107); CREATININE SERUM 0.7 mg/dL (0.6-1.0); GFR1 > 60 mL/min; GLUCOSE SERUM 97 mg/dL (74-106); POTASSIUM SERUM 3.9 mmol/L (3.5-5.1); SODIUM SERUM 137 mmol/L (136-145)
[2020-11-08 10:26] LABS: ALBUMIN 3.5 g/dL (3.4-5.0); ALKALINE PHOSPHATASE 97 U/L (46-116); ALT/SGPT 143 U/L (14-59); AST/SGOT 16 U/L (15-37); BILIRUBIN TOTAL 0.32 mg/dL (0.20-1.00); TOTAL PROTEIN, SERUM 6.8 g/dL (6.4-8.2)
[2020-11-08 10:39] LABS: microscopic required? NO
[2020-11-08 11:08] LABS: urine erythrocyte NEGATIVE (NEGATIVE)
[2020-11-08 16:11] VITALS: BP 108/72
== END 2020-11-08 16:10 | disposition home or self-care (01) ==
LOC: ED 09:02
PROVIDERS: Emergency Medicine
DX: R51.9 Headache, unspecified (principal); E86.0 Dehydration; R19.7 Diarrhea, unspecified; D72.829 Elevated white blood cell count, unspecified; I10 Essential (primary) hypertension; R10.9 Unspecified abdominal pain; D53.9 Nutritional anemia, unspecified; Z88.5 Allergy status to narcotic agent; Z88.1 Allergy status to other antibiotic agents; Z90.89 Acquired absence of other organs
CPT/HCPCS: J2405; J7030; Q9967